=== PATIENT | male | born 1995 | race Caucasian/White ===

== ENCOUNTER 2020-06-10 13:09 | Emergency (ER) | payer MEDICAID, OTHER, SELFPAY ==
[~2020-06-10] VITALS: Ht 177.8 cm; Wt 80.2 kg
[2020-06-10] MEDS ORDERED: ACETAMINOPHEN 325 MG TAB PO ONE (13:30)
[2020-06-10] MEDS ORDERED: ISOVUE-370 76% 100ML VIAL As Ordered ONE (14:48)
[2020-06-10 14:56] LABS: BASO % 0.3 % (0.0-1.0); LYMPH # 1.2 10^3/uL (1.5-5.0); LYMPH % 12.8 % (24.0-44.0); MEAN CORPUSCULAR HEMOGLOBIN 29.3 pg (27.0-33.0); MEAN CORPUSCULAR HGB CONC 33.3 g/dl (32.0-36.5); MEAN CORPUSCULAR VOLUME 87.9 fl (80.0-96.0); MONO # 1.6 10^3/uL (0.0-0.8); MONO % 16.7 % (0.0-5.0); NEUTROPHILS # 6.6 10^3/uL (1.5-8.5); NEUTROPHILS % 69.9 % (36.0-66.0); PLATELET COUNT, AUTOMATED 199 10^3/uL (150-450); RED BLOOD COUNT 5.12 10^6/uL (4.30-6.10); WHITE BLOOD COUNT 9.4 10^3/uL (4.0-10.0)
[2020-06-10 15:16] LABS: ERYTHROCYTE SEDIMENTATION RATE 11 mm/hr (0-15)
--- NOTE | 2020-06-10 15:21 | REPVR ---
PROCEDURE INFORMATION: Exam: CT Neck With Contrast Exam date and time: 06/10/2020 2:54 PM Age: 25 years old Clinical indication: Throat pain; Additional info: R tonsillar swelling with pain R/O abscess TECHNIQUE: Imaging protocol: Computed tomography images of the neck with intravenous contrast. Radiation optimization: All CT scans at this facility use at least one of these dose optimization techniques: automated exposure control; mA and/or kV adjustment per patient size (includes targeted exams where dose is matched to clinical indication); or iterative reconstruction. Contrast material: ISOVUE 370; Contrast volume: 75 ml; Contrast route: INTRAVENOUS (IV); COMPARISON: No relevant prior studies available. FINDINGS: Brain: The imaged brain is unremarkable. Orbits: The imaged orbits show no acute abnormality. Mastoid air cells: The imaged tympanomastoid cavities are aerated. Nasal cavity: Normal. Nasopharynx: Unremarkable. Oral Cavity: Normal. Oropharynx: There is a right palatine tonsillar hypertrophy and edema, with no drainable fluid collection. There are also bilateral tonsillar calcifications from chronic inflammation. Hypopharynx: Unremarkable. Larynx: Normal. Retropharyngeal space: Unremarkable. Submandibular/Parotid glands: The major salivary glands appear normal. Thyroid: Normal. Lymph nodes: Multiple mildly enlarged cervical lymph nodes are present bilaterally, measuring up to 2 cm in the right level 2 region. Trachea: Visualized trachea is unremarkable. Lungs: The imaged lung apices show no acute abnormality. Bones/joints: No acute abnormality. Soft tissues: No significant soft tissue swelling. IMPRESSION: 1. Right palatine tonsillar edema, likely tonsillitis, with no drainable peritonsillar abscess. 2. Cervical lymphadenopathy is present, likely reactive. Recommend clinical follow-up to resolution. Electronically signed by: Luís Beverly On 06/10/2020 15:20:45 PM
[2020-06-10] MEDS ORDERED: AZIT500T5 PO (15:24)
[2020-06-10] MEDS ORDERED: dexameTHASONE 20MG/5ML VIAL (J1100 PER 1MG) IV ONE (15:30)
[2020-06-10] MEDS ORDERED: AZITHROMYCIN 250MG TABLET PO ONE (15:30)
[2020-06-10 15:33] VITALS: BP 134/80
--- NOTE | 2020-06-12 07:45 | ED PDOC ---
Post-Departure Follow-Up certified letter sent to pt re formal read and recommendations of ct neck. obtsal n pcp name and fax. if no pcp refer to [facility] and fax Gurdeep Wilkes MD Jun 12, 2020 07:45
== END 2020-06-10 15:55 | disposition home or self-care (01) ==
LOC: M ED 13:09
DX: J03.90 Acute tonsillitis, unspecified (principal); R59.0 Localized enlarged lymph nodes; Z88.0 Allergy status to penicillin; Z88.1 Allergy status to other antibiotic agents
CPT/HCPCS: 70491; 80047; 85025; 85652; 86140; 87880; 96374; 99284; J1100; Q9967

== ENCOUNTER 2020-08-25 13:36 | Emergency (ER) | payer MEDICAID, OTHER ==
[~2020-08-25] VITALS: Ht 177.8 cm; Wt 80.8 kg
[~2020-08-25 13:36] MED LIST: AZIT500T5 PO
[2020-08-25] MEDS ORDERED: IBUP-1114 PO (13:45)
[2020-08-25 15:26] LABS: BASO % 0.4 % (0.0-1.0); EOS # 0.1 10^3/uL (0.0-0.5); EOS % 1.6 % (0.0-3.0); HEMATOCRIT 47.6 % (42.0-52.0); HEMOGLOBIN 15.7 g/dl (13.5-17.5); LYMPH # 1.9 10^3/uL (1.5-5.0); LYMPH % 27.3 % (24.0-44.0); MEAN CORPUSCULAR HEMOGLOBIN 28.7 pg (27.0-33.0); MONO # 0.6 10^3/uL (0.0-0.8); MONO % 9.1 % (0.0-5.0); NEUTROPHILS # 4.3 10^3/uL (1.5-8.5); NEUTROPHILS % 61.3 % (36.0-66.0); PLATELET COUNT, AUTOMATED 274 10^3/uL (150-450); RED BLOOD COUNT 5.47 10^6/uL (4.30-6.10); WHITE BLOOD COUNT 6.9 10^3/uL (4.0-10.0)
[2020-08-25 15:53] LABS: BLOOD UREA NITROGEN 16 MG/DL (7-18); CALCIUM LEVEL 9.9 MG/DL (8.5-10.1); CARBON DIOXIDE LEVEL 28 MEQ/L (21-32); CHLORIDE LEVEL 105 MEQ/L (98-107); CREATININE FOR GFR 0.85 MG/DL (0.70-1.30); GLOMERULAR FILTRATION RATE > 60.0 (>60); GLUCOSE, FASTING 87 MG/DL (70-100); POTASSIUM SERUM 4.2 MEQ/L (3.5-5.1); SODIUM LEVEL 139 MEQ/L (136-145)
[2020-08-25] MEDS ORDERED: VALA1TAB5 PO (16:01)
[2020-08-25] MEDS ORDERED: MAGICMW SSP (16:01)
[2020-08-25 16:44] LABS: HIV 1&2 SCREEN CENTAUR NEGATIVE (NEGATIVE)
[2020-08-25 17:25] VITALS: BP 146/71
== END 2020-08-25 17:28 | disposition home or self-care (01) ==
LOC: M ED 13:36
DX: B08.5 Enteroviral vesicular pharyngitis (principal); R51.9 Headache, unspecified; Z88.0 Allergy status to penicillin; Z88.1 Allergy status to other antibiotic agents
CPT/HCPCS: 36415; 80048; 85025; 87252; 87389; 99283; U0003